=== PATIENT | male | born 1960 | race Caucasian/White ===

== ENCOUNTER 2021-09-08 01:54 | Inpatient (IN) ==
[2021-09-08] MEDS ORDERED: *HR* Promethazine 25 MG/ML VIAL IM PRN (03:19)
[2021-09-08] MEDS ORDERED: Naloxone 0.4 MG/ML INJ IVP PRN (03:19)
[2021-09-08] MEDS ORDERED: Ondansetron 4 MG/2 ML VIAL IVP PRN (03:19)
[2021-09-08] MEDS ORDERED: Melatonin 3 MG TABLET PO PRN (03:19)
[2021-09-08] MEDS ORDERED: Perflutren Lipid Microsphere 1.3 ML in 0.9 % Sodium Chloride 8.7 ML IVP PRN (03:25)
[2021-09-08 04:53] LABS: Basophils % 0.2 %; Eosinophils % 0.1 %; Immature Granulocytes % 0.9 % (0-4); Lymphocytes # 0.6 K/mcL (0.6-4.6); Lymphocytes % 4.8 %; Mean Corpuscular HGB Conc 34.1 g/dL (31.6-35.5); Mean Corpuscular Hemoglobin 31.1 pg (28.0-33.3); Mean Corpuscular Volume 91.3 fL (83.0-100.0); Mean Platelet Volume 10.3 fL (9.4-12.4); Monocytes # 0.2 K/mcL (0.0-1.3); Monocytes % 1.3 %; Neutrophils # 11.9 K/mcL (1.6-8.9); Platelet Count 262 K/mcL (140-400); Red Blood Count 4.82 M/mcL (4.19-5.50); Red Cell Distribution Width 15.1 % (11.5-14.5); Segmented Neutrophils % 92.7 %; White Blood Count 12.8 K/mcL (4.3-11.1)
[2021-09-08] MEDS ORDERED: *HR* Labetalol 20 MG/4 ML SYRINGE IVP ONE (04:58)
[2021-09-08 05:01] LABS: INR 1.1; Prothrombin Time 12.1 Seconds (9.4-12.1)
[2021-09-08 05:12] LABS: Chol/HDL Ratio 6.4 (0-4.9); Cholesterol 243 mg/dL (< 200); HDL Cholesterol 38 mg/dL (40-59); Triglycerides 868 mg/dL (< 150)
[2021-09-08 05:20] LABS: Alanine Aminotransferase 55 Units/L (7-52); Albumin 3.8 g/dL (3.5-5.7); Albumin/Globulin Ratio 1.2 (1.1-2.2); Alkaline Phosphatase 160 Units/L (34-104); Aspartate Amino Transferase 77 Units/L (13-39); BUN/Creatinine Ratio 21 (6-26); Bilirubin,Total 0.3 mg/dL (0.3-1.0); Blood Urea Nitrogen 24 mg/dL (8-23); Calcium 8.4 mg/dL (8.6-10.3); Carbon Dioxide 21 mEq/L (23-29); Chloride 101 mEq/L (98-107); Globulin 3.3 g/dL (2.4-3.5); Glucose 368 mg/dL (70-105); Magnesium 1.5 mg/dL (1.6-2.6); Osmolality,Calculated 297 (280-300); Potassium 4.6 mEq/L (3.5-5.1); Sodium 134 mEq/L (136-145); Total Protein 7.1 g/dL (6.4-8.9); Troponin I 15.13 ng/mL (< 0.04); eGFR For African Americans > 60 (> 60); eGFR For Non-African Americans > 60 (> 60)
[2021-09-08] MEDS ORDERED: Dextrose Gel 15 GM/37.5 ML TUBE PO PRN ×2 (05:36)
[2021-09-08] MEDS ORDERED: *HR* Dextrose 50 % in Water (Syg) 50 ML SYRINGE IVP PRN (05:36)
[2021-09-08] MEDS ORDERED: D5% in Water 1,000 ML IVC PRN (05:36)
[2021-09-08] MEDS ORDERED: *HR* Ticagrelor 90 MG TABLET PO ONE (05:41)
[2021-09-08] MEDS ORDERED: *HR* Heparin 5,000 UNIT/ML VIAL IVP PRN (05:45)
[2021-09-08] MEDS ORDERED: Furosemide 20 MG/2 ML VIAL IVP ONE ×2 (05:47→08:49)
[2021-09-08] MEDS ORDERED: Insulin LISPRO 300 UNITS/3 ML VIAL SUBQ SCH (06:00)
[2021-09-08] MEDS: Insulin LISPRO 300 UNITS/3 ML VIAL SUBQ SCH ×3 (06:26→16:37)
[2021-09-08] MEDS: Insulin DETEMIR 100 UNIT/ML X5UNITS SUBQ SCH ×2 (08:01→20:44)
[2021-09-08] MEDS: Heparin 25,000UNIT/250ML 1/2NS 25,000 UNIT/250 ML IV.SOLN IVC SCH (08:01)
[2021-09-08] MEDS: Aspirin Enteric Coated 81 MG Tablet PO SCH (10:23)
[2021-09-08 11:56] LABS: Estimated Average Glucose 200 mg/dl; Hemoglobin A1C 8.6 %
[2021-09-08] MEDS ORDERED: Heparin 1,000 UNITS/500 mL 500 ML ONE ×2 (12:12→12:47)
[2021-09-08] MEDS ORDERED: *HR* Midazolam HCl 2 MG/2 ML VIAL ONE (12:12)
[2021-09-08] MEDS ORDERED: *HR* FentaNYL (PF) 100 MCG/2 ML VIAL ONE (12:12)
[2021-09-08] MEDS ORDERED: *HR* Heparin 10,000 UNIT/10 ML VIAL ONE (12:12)
[2021-09-08] MEDS ORDERED: ISOVUE-370 200 ML INFUS..BTL ONE (12:12)
[2021-09-08] MEDS ORDERED: 0.9 % Sodium Chloride 1,000 ML ONE (12:12)
[2021-09-08] MEDS ORDERED: Nitroglycerin 1,000 MCG/5 ML VIAL IV ONE (12:13)
[2021-09-08] MEDS: Isosorbide MONOnitrate (24 HR) 60 MG TAB.ER.24H PO SCH (14:34)
[2021-09-08] MEDS: carvediloL 6.25 MG TABLET PO SCH (17:41)
[2021-09-09] MEDS: Insulin LISPRO 300 UNITS/3 ML VIAL SUBQ SCH ×5 (01:08→22:10)
[2021-09-09 03:05] LABS: Basophils # 0.1 K/mcL (0.0-0.2); Basophils % 0.4 %; Eosinophils % 0.2 %; Hematocrit 41.4 % (37.5-50.1); Immature Granulocytes % 0.5 % (0-4); Lymphocytes # 2.5 K/mcL (0.6-4.6); Lymphocytes % 18.9 %; Mean Corpuscular HGB Conc 32.4 g/dL (31.6-35.5); Mean Corpuscular Hemoglobin 27.7 pg (28.0-33.3); Mean Corpuscular Volume 85.7 fL (83.0-100.0); Mean Platelet Volume 10.4 fL (9.4-12.4); Monocytes # 0.9 K/mcL (0.0-1.3); Monocytes % 6.9 %; Neutrophils # 9.7 K/mcL (1.6-8.9); Platelet Count 241 K/mcL (140-400); Red Blood Count 4.83 M/mcL (4.19-5.50); Segmented Neutrophils % 73.1 %; White Blood Count 13.3 K/mcL (4.3-11.1)
[2021-09-09 03:12] LABS: Hemoglobin 13.4 g/dL (12.9-16.9)
[2021-09-09 03:17] LABS: BUN/Creatinine Ratio 25 (6-26); Blood Urea Nitrogen 26 mg/dL (8-23); Calcium 8.8 mg/dL (8.6-10.3); Carbon Dioxide 26 mEq/L (23-29); Chloride 102 mEq/L (98-107); Glucose 237 mg/dL (70-105); Osmolality,Calculated 294 (280-300); Potassium 3.6 mEq/L (3.5-5.1); Sodium 136 mEq/L (136-145); eGFR For African Americans > 60 (> 60); eGFR For Non-African Americans > 60 (> 60)
[2021-09-09] MEDS: *HR* Heparin 5,000 UNIT/ML VIAL IVP PRN ×3 (04:13→18:45)
[2021-09-09] MEDS: carvediloL 6.25 MG TABLET PO SCH ×2 (07:44→16:50)
[2021-09-09] MEDS: Isosorbide MONOnitrate (24 HR) 60 MG TAB.ER.24H PO SCH (07:44)
[2021-09-09] MEDS: Insulin DETEMIR 100 UNIT/ML X5UNITS SUBQ SCH ×2 (07:44→22:10)
[2021-09-09] MEDS: Aspirin Enteric Coated 81 MG Tablet PO SCH (07:44)
[2021-09-09] MEDS ORDERED: Perflutren Lipid Microsphere 1.3 ML in 0.9 % Sodium Chloride 8.7 ML IVP PRN (08:28)
[2021-09-09] MEDS: lisinopriL 5 MG TABLET PO SCH (10:29)
[2021-09-09] MEDS: Furosemide 40 MG/4 ML VIAL IVP SCH (10:30)
[2021-09-09] MEDS: Heparin 25,000UNIT/250ML 1/2NS 25,000 UNIT/250 ML IV.SOLN IVC SCH (17:31)
[2021-09-10 01:48] LABS: Basophils # 0.1 K/mcL (0.0-0.2); Basophils % 0.6 %; Eosinophils # 0.1 K/mcL (0.0-0.6); Eosinophils % 0.6 %; Hematocrit 41.7 % (37.5-50.1); Hemoglobin 13.9 g/dL (12.9-16.9); Immature Granulocytes % 0.5 % (0-4); Lymphocytes # 3.1 K/mcL (0.6-4.6); Lymphocytes % 29.5 %; Mean Corpuscular HGB Conc 33.3 g/dL (31.6-35.5); Mean Corpuscular Volume 89.9 fL (83.0-100.0); Monocytes # 0.8 K/mcL (0.0-1.3); Monocytes % 7.3 %; Neutrophils # 6.5 K/mcL (1.6-8.9); Platelet Count 225 K/mcL (140-400); Red Blood Count 4.64 M/mcL (4.19-5.50); Red Cell Distribution Width 14.6 % (11.5-14.5); Segmented Neutrophils % 61.5 %; White Blood Count 10.6 K/mcL (4.3-11.1)
[2021-09-10 02:06] LABS: BUN/Creatinine Ratio 26 (6-26); Blood Urea Nitrogen 26 mg/dL (8-23); Calcium 8.6 mg/dL (8.6-10.3); Carbon Dioxide 26 mEq/L (23-29); Chloride 100 mEq/L (98-107); Glucose 185 mg/dL (70-105); Osmolality,Calculated 290 (280-300); Potassium 3.8 mEq/L (3.5-5.1); Sodium 135 mEq/L (136-145); eGFR For African Americans > 60 (> 60); eGFR For Non-African Americans > 60 (> 60)
[2021-09-10] MEDS: lisinopriL 5 MG TABLET PO SCH (07:17)
[2021-09-10] MEDS: Aspirin Enteric Coated 81 MG Tablet PO SCH (07:18)
[2021-09-10] MEDS: Isosorbide MONOnitrate (24 HR) 60 MG TAB.ER.24H PO SCH (07:18)
[2021-09-10] MEDS: carvediloL 6.25 MG TABLET PO SCH ×2 (07:18→16:55)
[2021-09-10] MEDS: Furosemide 40 MG/4 ML VIAL IVP SCH (07:18)
[2021-09-10] MEDS ORDERED: carvediloL 6.25 MG TABLET PO ONE (07:22)
[2021-09-10] MEDS: Heparin 25,000UNIT/250ML 1/2NS 25,000 UNIT/250 ML IV.SOLN IVC SCH (08:17)
[2021-09-10] MEDS ORDERED: lisinopriL 5 MG TABLET PO SCH ×2 (09:00→12:00)
[2021-09-10] MEDS: Insulin DETEMIR 100 UNIT/ML X5UNITS SUBQ SCH ×2 (09:01→21:00)
[2021-09-10] MEDS: Insulin LISPRO 300 UNITS/3 ML VIAL SUBQ SCH ×7 (09:02→20:57)
[2021-09-10] MEDS: amLODIPine 5 MG TABLET PO SCH (16:55)
[2021-09-10] MEDS: *HR* Heparin 5,000 UNIT/ML VIAL SQ SCH (16:56)
[2021-09-11] MEDS: *HR* Heparin 5,000 UNIT/ML VIAL SQ SCH ×2 (05:08→16:28)
[2021-09-11 06:05] LABS: Basophils % 0.4 %; Eosinophils # 0.1 K/mcL (0.0-0.6); Eosinophils % 0.7 %; Hematocrit 41.1 % (37.5-50.1); Hemoglobin 13.6 g/dL (12.9-16.9); Immature Granulocytes % 0.5 % (0-4); Lymphocytes # 1.9 K/mcL (0.6-4.6); Lymphocytes % 20.7 %; Mean Corpuscular HGB Conc 33.1 g/dL (31.6-35.5); Mean Corpuscular Hemoglobin 28.5 pg (28.0-33.3); Mean Corpuscular Volume 86.2 fL (83.0-100.0); Mean Platelet Volume 10.2 fL (9.4-12.4); Monocytes # 0.7 K/mcL (0.0-1.3); Monocytes % 7.9 %; Neutrophils # 6.4 K/mcL (1.6-8.9); Platelet Count 218 K/mcL (140-400); Red Blood Count 4.77 M/mcL (4.19-5.50); Red Cell Distribution Width 13.7 % (11.5-14.5); Segmented Neutrophils % 69.8 %; White Blood Count 9.2 K/mcL (4.3-11.1)
[2021-09-11 06:25] LABS: BUN/Creatinine Ratio 34 (6-26); Blood Urea Nitrogen 37 mg/dL (8-23); Calcium 8.7 mg/dL (8.6-10.3); Carbon Dioxide 26 mEq/L (23-29); Chloride 103 mEq/L (98-107); Glucose 205 mg/dL (70-105); Osmolality,Calculated 295 (280-300); Potassium 3.8 mEq/L (3.5-5.1); Sodium 135 mEq/L (136-145); eGFR For African Americans > 60 (> 60); eGFR For Non-African Americans > 60 (> 60)
[2021-09-11] MEDS: Isosorbide MONOnitrate (24 HR) 60 MG TAB.ER.24H PO SCH (07:54)
[2021-09-11] MEDS: carvediloL 6.25 MG TABLET PO SCH ×2 (07:54→16:27)
[2021-09-11] MEDS: amLODIPine 5 MG TABLET PO SCH (07:54)
[2021-09-11] MEDS: Aspirin Enteric Coated 81 MG Tablet PO SCH (07:54)
[2021-09-11] MEDS: Insulin DETEMIR 100 UNIT/ML X5UNITS SUBQ SCH ×2 (07:55→21:29)
[2021-09-11] MEDS: Insulin LISPRO 300 UNITS/3 ML VIAL SUBQ SCH ×7 (07:57→21:29)
[2021-09-11] MEDS ORDERED: Furosemide 40 MG TABLET PO SCH (09:00)
[2021-09-11] MEDS ORDERED: amLODIPine 5 MG TABLET PO SCH (09:00)
[2021-09-11] MEDS ORDERED: lisinopriL 20 MG TABLET PO SCH ×2 (12:00)
[2021-09-11] MEDS ORDERED: lisinopriL 5 MG TABLET PO SCH ×2 (12:00)
[2021-09-11] MEDS ORDERED: Isosorbide MONOnitrate (24 HR) 60 MG TAB.ER.24H PO SCH (21:00)
[2021-09-12 03:46] LABS: BUN/Creatinine Ratio 34 (6-26); Blood Urea Nitrogen 44 mg/dL (8-23); Calcium 8.4 mg/dL (8.6-10.3); Carbon Dioxide 24 mEq/L (23-29); Chloride 100 mEq/L (98-107); Glucose 148 mg/dL (70-105); Osmolality,Calculated 294 (280-300); Potassium 3.8 mEq/L (3.5-5.1); Sodium 135 mEq/L (136-145); eGFR For African Americans > 60 (> 60); eGFR For Non-African Americans 55 (> 60)
[2021-09-12] MEDS: *HR* Heparin 5,000 UNIT/ML VIAL SQ SCH (05:16)
[2021-09-12] MEDS: Insulin DETEMIR 100 UNIT/ML X5UNITS SUBQ SCH (07:59)
[2021-09-12] MEDS: Aspirin Enteric Coated 81 MG Tablet PO SCH (08:00)
[2021-09-12] MEDS: carvediloL 6.25 MG TABLET PO SCH (08:00)
[2021-09-12] MEDS: Insulin LISPRO 300 UNITS/3 ML VIAL SUBQ SCH ×4 (08:01→12:41)
[2021-09-12 10:07] LABS: BUN/Creatinine Ratio 37 (6-26); Blood Urea Nitrogen 43 mg/dL (8-23); Calcium 8.5 mg/dL (8.6-10.3); Carbon Dioxide 25 mEq/L (23-29); Chloride 101 mEq/L (98-107); Glucose 251 mg/dL (70-105); Osmolality,Calculated 297 (280-300); Sodium 134 mEq/L (136-145); eGFR For African Americans > 60 (> 60); eGFR For Non-African Americans > 60 (> 60)
[2021-09-12] MEDS ORDERED: amLODIPine 5 MG TABLET PO SCH ×2 (10:30→12:00)
[2021-09-12 12:05] VITALS: BP 161/70; PULSE 78; TEMP 98.1; O2SAT 98
[2021-09-12] MEDS ORDERED: lisinopriL 20 MG TABLET PO SCH (21:00)
== END 2021-09-12 16:02 | disposition home or self-care (01) | DRG 281 ==
LOC: 2ANU → SUATTDRO 02:41
PROVIDERS: ADMIT Internal Medicine; ATTEND Internal Medicine

== ENCOUNTER 2021-09-19 06:06 | Inpatient (IN) ==
[2021-09-19] MEDS ORDERED: CeFAZolin Syr 2,000MG/20 ML 2,000 MG/20 ML SYRINGE IVPB ONE (06:26)
[2021-09-19] MEDS ORDERED: Ringers Solution, Lactated 1,000 ML IVC SCH (06:30)
[2021-09-19] MEDS ORDERED: NiCARdipine 2.5 MG/10 ML Syringe IVPB ONE (06:41)
[2021-09-19] MEDS ORDERED: *HR* FentaNYL (PF) 1,000 MCG/20 ML VIAL ONE (06:43)
[2021-09-19] MEDS ORDERED: *HR* Propofol 200 MG/20 ML VIAL IVP ONE (06:43)
[2021-09-19] MEDS ORDERED: *HR* Midazolam HCl 5 MG/5 ML VIAL IVP ONE (06:43)
[2021-09-19] MEDS ORDERED: Tranexamic Acid 1,000 MG/10 ML VIAL ONE ×2 (06:47→11:00)
[2021-09-19] MEDS ORDERED: Lidocaine 2% Syringe 100 MG/5 ML ONE ×2 (06:47→11:00)
[2021-09-19] MEDS ORDERED: Famotidine 20 MG/2 ML VIAL ONE (06:47)
[2021-09-19] MEDS ORDERED: *HR* Magnesium Sulfate 1 GM/2 ML VIAL ONE (06:47)
[2021-09-19] MEDS ORDERED: *HR* Rocuronium Bromide 50 MG/5 ML VIAL ONE ×3 (06:47→11:25)
[2021-09-19] MEDS ORDERED: Chlorhexidine Rinse 15 ML MOUTHWASH MM SCH ×4 (07:00→21:00)
[2021-09-19] MEDS ORDERED: Papaverine 60 MG/2 ML VIAL IVP ONE (07:12)
[2021-09-19] MEDS ORDERED: Vancomycin 1,000 MG VIAL ONE (07:13)
[2021-09-19] MEDS ORDERED: Norepinephrine 4 MG in 0.9 % Sodium Chloride 250 ML IVC PRN (07:45)
[2021-09-19] MEDS ORDERED: Buckersberg's Blood Cardioplegia PF SCH (07:45)
[2021-09-19] MEDS ORDERED: Heparin 15,000 UNIT in 0.9 % Sodium Chloride 500 ML IV ONE ×2 (07:45→13:22)
[2021-09-19] MEDS ORDERED: del Nido Cardioplegia Solution PF ONE (07:45)
[2021-09-19] MEDS ORDERED: del Nido Cardioplegia Solution PF SCH (07:45)
[2021-09-19 08:30] LABS: ABG Base Excess -2 mEq/L (-2 to 3); ABG Chloride 107 mEq/L (98-107); ABG Glucose 131 mg/dL (60-95); ABG HCO3 24 mEq/L (21-27); ABG Ionized Calcium 1.09 mmol/L (1.15-1.35); ABG Oxygen Saturation 100 % (95-98); ABG PCO2 48 mmHg (35-45); ABG PH 7.31 pH Units (7.32-7.45); ABG PO2 352 mmHg (85-104); ABG TCO2 26 mEq/L (20-26)
[2021-09-19 09:53] LABS: ABG Base Excess -3 mEq/L (-2 to 3); ABG Chloride 106 mEq/L (98-107); ABG Glucose 154 mg/dL (60-95); ABG HCO3 22 mEq/L (21-27); ABG Ionized Calcium 1.09 mmol/L (1.15-1.35); ABG Oxygen Saturation 99 % (95-98); ABG PCO2 37 mmHg (35-45); ABG PH 7.38 pH Units (7.32-7.45); ABG PO2 164 mmHg (85-104); ABG TCO2 23 mEq/L (20-26)
[2021-09-19 10:52] LABS: ABG Base Excess -1 mEq/L (-2 to 3); ABG Chloride 100 mEq/L (98-107); ABG Glucose 144 mg/dL (60-95); ABG HCO3 25 mEq/L (21-27); ABG Ionized Calcium 1.04 mmol/L (1.15-1.35); ABG Oxygen Saturation 100 % (95-98); ABG PCO2 47 mmHg (35-45); ABG PH 7.33 pH Units (7.32-7.45); ABG PO2 589 mmHg (85-104); ABG TCO2 26 mEq/L (20-26)
[2021-09-19] MEDS ORDERED: Mannitol 25% vial 12.5 GM/50 ML VIAL ONE (11:00)
[2021-09-19] MEDS ORDERED: *HR* Magnesium Sulfate 2 GM/50 ML PIGGYBACK IVPB ONE (11:00)
[2021-09-19] MEDS ORDERED: *HR* Heparin 10,000 UNIT/10 ML VIAL ONE (11:00)
[2021-09-19] MEDS ORDERED: Albumin Human 25% 25 GM/100 ML IV.SOLN ONE (11:00)
[2021-09-19] MEDS ORDERED: Sodium Bicarbonate 50 MEQ/50 ML VIAL ONE (11:00)
[2021-09-19] MEDS ORDERED: *HR* Phenylephrine 10 MG/ML VIAL ONE (11:00)
[2021-09-19] MEDS ORDERED: Heparin 1,000 UNITS/500 mL IV.SOLN ONE (11:00)
[2021-09-19 11:11] LABS: ABG Base Excess -1 mEq/L (-2 to 3); ABG Chloride 101 mEq/L (98-107); ABG Glucose 156 mg/dL (60-95); ABG HCO3 24 mEq/L (21-27); ABG Ionized Calcium 1.06 mmol/L (1.15-1.35); ABG Oxygen Saturation 100 % (95-98); ABG PCO2 42 mmHg (35-45); ABG PH 7.37 pH Units (7.32-7.45); ABG PO2 411 mmHg (85-104); ABG TCO2 25 mEq/L (20-26)
[2021-09-19] MEDS ORDERED: Protamine Sulfate 250 MG/25 ML VIAL IVP ONE (11:20)
[2021-09-19] MEDS ORDERED: Protamine Sulfate 50 MG/5 ML VIAL IVP ONE (11:20)
[2021-09-19] MEDS ORDERED: Calcium Gluconate 1,000 MG/10 ML VIAL ONE (11:21)
[2021-09-19 11:27] LABS: ABG Base Excess -1 mEq/L (-2 to 3); ABG Chloride 105 mEq/L (98-107); ABG Glucose 153 mg/dL (60-95); ABG HCO3 24 mEq/L (21-27); ABG Ionized Calcium 1.01 mmol/L (1.15-1.35); ABG Oxygen Saturation 100 % (95-98); ABG PCO2 44 mmHg (35-45); ABG PH 7.35 pH Units (7.32-7.45); ABG PO2 355 mmHg (85-104); ABG TCO2 26 mEq/L (20-26)
[2021-09-19 11:46] LABS: ABG Base Excess 1 mEq/L (-2 to 3); ABG Chloride 106 mEq/L (98-107); ABG Glucose 162 mg/dL (60-95); ABG HCO3 27 mEq/L (21-27); ABG Ionized Calcium 1.03 mmol/L (1.15-1.35); ABG Oxygen Saturation 100 % (95-98); ABG PCO2 47 mmHg (35-45); ABG PH 7.36 pH Units (7.32-7.45); ABG PO2 295 mmHg (85-104); ABG TCO2 28 mEq/L (20-26)
[2021-09-19] MEDS ORDERED: *HR* Dextrose 50 % in Water (Syg) 50 ML SYRINGE ONE (11:56)
[2021-09-19 12:05] LABS: ABG Base Excess -5 mEq/L (-2 to 3); ABG Chloride 107 mEq/L (98-107); ABG Glucose 288 mg/dL (60-95); ABG HCO3 21 mEq/L (21-27); ABG Ionized Calcium 1.03 mmol/L (1.15-1.35); ABG Oxygen Saturation 96 % (95-98); ABG PCO2 41 mmHg (35-45); ABG PH 7.31 pH Units (7.32-7.45); ABG PO2 87 mmHg (85-104); ABG TCO2 22 mEq/L (20-26)
[2021-09-19] MEDS ORDERED: Acetaminophen 325 MG TABLET PO PRN ×2 (13:07→13:22)
[2021-09-19] MEDS ORDERED: Albumin Human 5% 12.5 GM/250 ML IV.SOLN IVPB PRN (13:07)
[2021-09-19] MEDS ORDERED: Potassium Chloride 40 MEQ/200 ML BAG IVPB PRN ×2 (13:07→13:22)
[2021-09-19] MEDS ORDERED: Insulin Regular, Human 100 UNIT/ML IV PRN ×2 (13:07→13:22)
[2021-09-19] MEDS ORDERED: *HR* Dextrose 50 % in Water (Syg) 50 ML SYRINGE IVP PRN (13:07)
[2021-09-19] MEDS ORDERED: Calcium Gluconate 1gm/50mL 1 GM/50 ML BAG IVPB PRN ×2 (13:07→13:22)
[2021-09-19] MEDS ORDERED: *HR* Promethazine 25 MG/ML VIAL IM PRN ×2 (13:07→13:22)
[2021-09-19] MEDS ORDERED: *HR* OxyCODONE/APAP 5/325 TABLET PO PRN (13:07)
[2021-09-19] MEDS ORDERED: Ondansetron 4 MG/2 ML VIAL IVP PRN ×2 (13:07→13:22)
[2021-09-19] MEDS ORDERED: *HR* FentaNYL (PF) 100 MCG/2 ML VIAL IVP PRN (13:07)
[2021-09-19] MEDS ORDERED: Norepinephrine 4 MG/254 ML IV.SOLN IVC SCH (13:15)
[2021-09-19 13:21] LABS: ABG Base Excess -3 mEq/L (-2 to 3); ABG HCO3 23 mEq/L (21-27); ABG Oxygen Saturation 93 % (95-98); ABG PCO2 49 mmHg (35-45); ABG PH 7.29 pH Units (7.32-7.45); ABG PO2 73 mmHg (85-104); ABG TCO2 25 mEq/L (20-26); Blood Gas Modality ASSIST CONTROL; Blood Gas VT 600 cc
[2021-09-19] MEDS ORDERED: Sodium Bicarbonate 10 MEQ, Potassium Chloride 80 MEQ in CARDIOPLEGIC SOLUTION NO.1 1,00... PF SCH (13:22)
[2021-09-19 13:30] LABS: Basophils # 0.1 K/mcL (0.0-0.2); Basophils % 0.4 %; Eosinophils % 0.2 %; Hematocrit 34.1 % (37.5-50.1); Hemoglobin 11.2 g/dL (12.9-16.9); Immature Granulocytes % 0.6 % (0-4); Lymphocytes # 0.9 K/mcL (0.6-4.6); Lymphocytes % 5.3 %; Mean Corpuscular HGB Conc 32.8 g/dL (31.6-35.5); Mean Corpuscular Hemoglobin 28.3 pg (28.0-33.3); Mean Corpuscular Volume 86.1 fL (83.0-100.0); Mean Platelet Volume 10.6 fL (9.4-12.4); Monocytes # 0.7 K/mcL (0.0-1.3); Neutrophils # 15.4 K/mcL (1.6-8.9); Platelet Count 186 K/mcL (140-400); Red Blood Count 3.96 M/mcL (4.19-5.50); Red Cell Distribution Width 13.4 % (11.5-14.5); Segmented Neutrophils % 89.5 %; White Blood Count 17.3 K/mcL (4.3-11.1)
[2021-09-19 13:37] LABS: INR 1.4; Prothrombin Time 15.4 Seconds (9.4-12.1)
[2021-09-19 13:39] LABS: Activated Partial Thrombo Time 37.4 Seconds (26.0-36.0)
[2021-09-19 13:45] LABS: BUN/Creatinine Ratio 27 (6-26); Blood Urea Nitrogen 26 mg/dL (8-23); Calcium 7.8 mg/dL (8.6-10.3); Carbon Dioxide 25 mEq/L (23-29); Chloride 106 mEq/L (98-107); Glucose 240 mg/dL (70-105); Magnesium 2.8 mg/dL (1.6-2.6); Osmolality,Calculated 295 (280-300); Potassium 4.5 mEq/L (3.5-5.1); Sodium 136 mEq/L (136-145); eGFR For African Americans > 60 (> 60); eGFR For Non-African Americans > 60 (> 60)
[2021-09-19] MEDS ORDERED: niCARdipine 20 MG/200 ML MLS IVC ONE (14:22)
[2021-09-19] MEDS: niCARdipine 20 MG/200 ML MLS IVC SCH ×3 (14:28→19:18)
[2021-09-19] MEDS: *HR* FentaNYL (PF) 100 MCG/2 ML VIAL IVP PRN ×2 (14:28→19:18)
[2021-09-19] MEDS: CeFAZolin 2 GM/120 ML BAG IVPB SCH ×2 (15:33→23:02)
[2021-09-19] MEDS ORDERED: CeFAZolin 2 GM/120 ML BAG IVPB SCH (16:00)
[2021-09-19] MEDS: *HR* OxyCODONE/APAP 5/325 TABLET PO PRN ×2 (16:19→21:58)
[2021-09-19 17:28] LABS: ABG Base Excess -2 mEq/L (-2 to 3); ABG HCO3 23 mEq/L (21-27); ABG Oxygen Saturation 97 % (95-98); ABG PCO2 37 mmHg (35-45); ABG PO2 89 mmHg (85-104); ABG TCO2 24 mEq/L (20-26)
[2021-09-19] MEDS: Norepinephrine 4 MG/254 ML IV.SOLN IVC SCH ×2 (19:12→19:51)
[2021-09-19] MEDS: Chlorhexidine Rinse 15 ML MOUTHWASH MM SCH (19:56)
[2021-09-20] MEDS: *HR* FentaNYL (PF) 100 MCG/2 ML VIAL IVP PRN ×4 (00:04→11:41)
[2021-09-20] MEDS: *HR* OxyCODONE/APAP 5/325 TABLET PO PRN ×6 (01:58→22:23)
[2021-09-20] MEDS: niCARdipine 20 MG/200 ML MLS IVC SCH ×6 (03:11→23:06)
[2021-09-20 03:30] LABS: Basophils % 0.1 %; Hematocrit 33.2 % (37.5-50.1); Hemoglobin 10.9 g/dL (12.9-16.9); Immature Granulocytes % 0.6 % (0-4); Lymphocytes # 1.2 K/mcL (0.6-4.6); Lymphocytes % 5.5 %; Mean Corpuscular HGB Conc 32.8 g/dL (31.6-35.5); Mean Corpuscular Hemoglobin 27.9 pg (28.0-33.3); Mean Corpuscular Volume 85.1 fL (83.0-100.0); Monocytes # 1.7 K/mcL (0.0-1.3); Monocytes % 7.7 %; Neutrophils # 19.2 K/mcL (1.6-8.9); Platelet Count 235 K/mcL (140-400); Red Cell Distribution Width 13.8 % (11.5-14.5); Segmented Neutrophils % 86.1 %; White Blood Count 22.3 K/mcL (4.3-11.1)
[2021-09-20 03:39] LABS: INR 1.3; Prothrombin Time 14.3 Seconds (9.4-12.1)
[2021-09-20 03:41] LABS: Activated Partial Thrombo Time 31.3 Seconds (26.0-36.0)
[2021-09-20 03:50] LABS: BUN/Creatinine Ratio 23 (6-26); Blood Urea Nitrogen 31 mg/dL (8-23); Carbon Dioxide 20 mEq/L (23-29); Chloride 102 mEq/L (98-107); Glucose 145 mg/dL (70-105); Magnesium 2.4 mg/dL (1.6-2.6); Osmolality,Calculated 285 (280-300); Potassium 4.6 mEq/L (3.5-5.1); Sodium 133 mEq/L (136-145); eGFR For African Americans > 60 (> 60); eGFR For Non-African Americans 55 (> 60)
[2021-09-20] MEDS: Albumin Human 5% 12.5 GM/250 ML IV.SOLN IVPB PRN ×2 (05:54→06:17)
[2021-09-20] MEDS ORDERED: Aspirin 81 MG TAB.CHEW PO ONE ×2 (06:00)
[2021-09-20] MEDS: Chlorhexidine Rinse 15 ML MOUTHWASH MM SCH ×2 (07:59→19:25)
[2021-09-20] MEDS: Pantoprazole 40 MG VIAL IVP SCH (07:59)
[2021-09-20] MEDS ORDERED: Aspirin Enteric Coated 81 MG Tablet PO SCH (09:00)
[2021-09-20] MEDS ORDERED: Chlorhexidine Rinse 15 ML MOUTHWASH MM SCH (09:00)
[2021-09-20] MEDS ORDERED: Pantoprazole 40 MG VIAL IVP SCH (09:00)
[2021-09-20] MEDS ORDERED: D5% in Water 1,000 ML IVC PRN (11:12)
[2021-09-20] MEDS ORDERED: *HR* Dextrose 50 % in Water (Syg) 50 ML SYRINGE IVP PRN (11:12)
[2021-09-20] MEDS ORDERED: Dextrose Gel 15 GM/37.5 ML TUBE PO PRN ×2 (11:12)
[2021-09-20] MEDS ORDERED: Bumetanide 1 MG/4 ML VIAL IVP SCH (11:15)
[2021-09-20] MEDS: Insulin LISPRO 300 UNITS/3 ML VIAL SUBQ SCH ×2 (11:41→17:13)
[2021-09-20] MEDS: Norepinephrine 4 MG/254 ML IV.SOLN IVC SCH (19:12)
[2021-09-20] MEDS ORDERED: Insulin LISPRO 300 UNITS/3 ML VIAL SUBQ SCH (21:00)
[2021-09-21] MEDS: *HR* OxyCODONE/APAP 5/325 TABLET PO PRN ×5 (02:27→20:01)
[2021-09-21] MEDS: niCARdipine 20 MG/200 ML MLS IVC SCH ×3 (03:03→11:13)
[2021-09-21 04:12] LABS: Basophils % 0.2 %; Eosinophils # 0.1 K/mcL (0.0-0.6); Eosinophils % 0.3 %; Hematocrit 29.1 % (37.5-50.1); Hemoglobin 9.6 g/dL (12.9-16.9); Immature Granulocytes % 0.7 % (0-4); Lymphocytes # 1.2 K/mcL (0.6-4.6); Lymphocytes % 7.5 %; Mean Corpuscular Hemoglobin 28.9 pg (28.0-33.3); Mean Corpuscular Volume 87.7 fL (83.0-100.0); Mean Platelet Volume 11.1 fL (9.4-12.4); Monocytes # 1.6 K/mcL (0.0-1.3); Monocytes % 9.9 %; Neutrophils # 13.2 K/mcL (1.6-8.9); Platelet Count 164 K/mcL (140-400); Red Blood Count 3.32 M/mcL (4.19-5.50); Red Cell Distribution Width 14.1 % (11.5-14.5); Segmented Neutrophils % 81.4 %; White Blood Count 16.2 K/mcL (4.3-11.1)
[2021-09-21 04:15] LABS: VBG Ionized Calcium 1.05 mmol/L (1.15-1.35)
[2021-09-21 04:26] LABS: Calcium 8.1 mg/dL (8.6-10.3); Magnesium 2.2 mg/dL (1.6-2.6); Phosphorous 4.6 mg/dL (2.7-4.5); Potassium 4.6 mEq/L (3.5-5.1)
[2021-09-21] MEDS ORDERED: Calcium Gluconate 1gm/50mL 1 GM/50 ML BAG IVPB ONE (06:19)
[2021-09-21] MEDS: Insulin LISPRO 300 UNITS/3 ML VIAL SUBQ SCH ×3 (07:49→19:58)
[2021-09-21] MEDS: Pantoprazole 40 MG VIAL IVP SCH (08:59)
[2021-09-21] MEDS: Chlorhexidine Rinse 15 ML MOUTHWASH MM SCH (08:59)
[2021-09-21] MEDS ORDERED: Acetaminophen 325 MG TABLET PO PRN (13:25)
[2021-09-21] MEDS ORDERED: *HR* Promethazine 25 MG/ML VIAL IM PRN (13:25)
[2021-09-21] MEDS ORDERED: Albumin Human 5% 12.5 GM/250 ML IV.SOLN IVPB PRN (13:25)
[2021-09-21] MEDS ORDERED: Insulin Regular, Human 100 UNIT/ML IV PRN (13:25)
[2021-09-21] MEDS ORDERED: Ondansetron 4 MG/2 ML VIAL IVP PRN (13:25)
[2021-09-21] MEDS: 0.9 % Sodium Chloride 1,000 ML IVC SCH (14:02)
[2021-09-21] MEDS: Norepinephrine 4 MG/254 ML IV.SOLN IVC SCH (14:51)
[2021-09-21] MEDS: *HR* Heparin 5,000 UNIT/ML VIAL SQ SCH (17:07)
[2021-09-22] MEDS: *HR* OxyCODONE/APAP 5/325 TABLET PO PRN ×3 (02:33→20:33)
[2021-09-22] MEDS: 0.9 % Sodium Chloride 1,000 ML IVC SCH ×3 (02:34→16:51)
[2021-09-22 05:29] LABS: Calcium 8.2 mg/dL (8.6-10.3); Potassium 4.2 mEq/L (3.5-5.1)
[2021-09-22] MEDS: *HR* Heparin 5,000 UNIT/ML VIAL SQ SCH ×2 (06:01→18:57)
[2021-09-22] MEDS: Aspirin Enteric Coated 81 MG Tablet PO SCH (08:06)
[2021-09-22] MEDS ORDERED: Pantoprazole 40 MG VIAL IVP SCH (09:00)
[2021-09-22] MEDS: lisinopriL 20 MG TABLET PO SCH ×2 (10:16→20:29)
[2021-09-22] MEDS: Insulin DETEMIR 100 UNIT/ML X5UNITS SUBQ SCH ×2 (10:16→20:27)
[2021-09-22] MEDS: Insulin LISPRO 300 UNITS/3 ML VIAL SUBQ SCH ×3 (11:43→20:27)
[2021-09-22] MEDS: Isosorbide MONOnitrate (24 HR) 60 MG TAB.ER.24H PO SCH (20:27)
[2021-09-23] MEDS: 0.9 % Sodium Chloride 1,000 ML IVC SCH (02:52)
[2021-09-23 03:12] LABS: Basophils % 0.3 %; Calcium 7.9 mg/dL (8.6-10.3); Eosinophils # 0.1 K/mcL (0.0-0.6); Eosinophils % 0.6 %; Immature Granulocytes % 0.5 % (0-4); Lymphocytes # 1.4 K/mcL (0.6-4.6); Lymphocytes % 14.9 %; Mean Corpuscular HGB Conc 32.9 g/dL (31.6-35.5); Mean Corpuscular Hemoglobin 29.2 pg (28.0-33.3); Mean Corpuscular Volume 88.6 fL (83.0-100.0); Mean Platelet Volume 11.4 fL (9.4-12.4); Monocytes # 0.9 K/mcL (0.0-1.3); Monocytes % 9.6 %; Neutrophils # 6.9 K/mcL (1.6-8.9); Platelet Count 188 K/mcL (140-400); Potassium 4.5 mEq/L (3.5-5.1); Red Blood Count 2.71 M/mcL (4.19-5.50); Red Cell Distribution Width 14.2 % (11.5-14.5); Segmented Neutrophils % 74.1 %; White Blood Count 9.4 K/mcL (4.3-11.1)
[2021-09-23 03:47] LABS: Hemoglobin 7.9 g/dL (12.9-16.9)
[2021-09-23] MEDS: *HR* Heparin 5,000 UNIT/ML VIAL SQ SCH ×2 (05:23→17:53)
[2021-09-23] MEDS: Insulin LISPRO 300 UNITS/3 ML VIAL SUBQ SCH ×5 (07:56→21:30)
[2021-09-23] MEDS: lisinopriL 20 MG TABLET PO SCH ×2 (08:54→21:31)
[2021-09-23] MEDS: Aspirin Enteric Coated 81 MG Tablet PO SCH (08:54)
[2021-09-23] MEDS: Insulin DETEMIR 100 UNIT/ML X5UNITS SUBQ SCH ×2 (08:55→21:30)
[2021-09-23] MEDS: *HR* OxyCODONE/APAP 5/325 TABLET PO PRN ×3 (09:02→21:59)
[2021-09-23] MEDS: polyethylene glycoL 3350 17 GM POWD.PACK PO SCH (17:53)
[2021-09-23] MEDS ORDERED: 0.9 % Sodium Chloride 1,000 ML IVC SCH (19:15)
[2021-09-23] MEDS: Isosorbide MONOnitrate (24 HR) 60 MG TAB.ER.24H PO SCH (21:31)
[2021-09-23] MEDS: *HR* Metformin 500 MG TABLET PO SCH (21:31)
[2021-09-24 02:26] LABS: BUN/Creatinine Ratio 46 (6-26); Blood Urea Nitrogen 59 mg/dL (8-23); Carbon Dioxide 23 mEq/L (23-29); Chloride 105 mEq/L (98-107); Potassium 4.9 mEq/L (3.5-5.1); Sodium 135 mEq/L (136-145); eGFR For African Americans > 60 (> 60)
[2021-09-24 02:27] LABS: Calcium 8.2 mg/dL (8.6-10.3); Glucose 153 mg/dL (70-105); Osmolality,Calculated 300 (280-300); eGFR For Non-African Americans 57 (> 60)
[2021-09-24 02:36] LABS: Basophils % 0.4 %; Eosinophils # 0.2 K/mcL (0.0-0.6); Eosinophils % 1.9 %; Hematocrit 26.4 % (37.5-50.1); Hemoglobin 8.7 g/dL (12.9-16.9); Immature Granulocytes % 0.4 % (0-4); Lymphocytes % 17.4 %; Mean Corpuscular Hemoglobin 28.3 pg (28.0-33.3); Monocytes # 1.3 K/mcL (0.0-1.3); Monocytes % 11.7 %; Neutrophils # 7.7 K/mcL (1.6-8.9); Platelet Count 273 K/mcL (140-400); Red Blood Count 3.07 M/mcL (4.19-5.50); Red Cell Distribution Width 14.2 % (11.5-14.5); Segmented Neutrophils % 68.2 %; White Blood Count 11.3 K/mcL (4.3-11.1)
[2021-09-24] MEDS: *HR* Heparin 5,000 UNIT/ML VIAL SQ SCH ×2 (05:06→17:04)
[2021-09-24] MEDS: Insulin LISPRO 300 UNITS/3 ML VIAL SUBQ SCH ×4 (08:52→20:00)
[2021-09-24] MEDS: polyethylene glycoL 3350 17 GM POWD.PACK PO SCH (08:59)
[2021-09-24] MEDS: Aspirin Enteric Coated 81 MG Tablet PO SCH (08:59)
[2021-09-24] MEDS: *HR* Metformin 500 MG TABLET PO SCH ×2 (09:04→19:58)
[2021-09-24] MEDS: lisinopriL 20 MG TABLET PO SCH ×2 (09:04→19:58)
[2021-09-24] MEDS: Insulin DETEMIR 100 UNIT/ML X5UNITS SUBQ SCH ×2 (09:05→19:59)
[2021-09-24] MEDS: *HR* OxyCODONE/APAP 5/325 TABLET PO PRN ×2 (09:12→21:41)
[2021-09-24] MEDS ORDERED: Lactulose Oral Soln 20 GM/30 ML UDC PO ONE (14:53)
[2021-09-24] MEDS: Isosorbide MONOnitrate (24 HR) 60 MG TAB.ER.24H PO SCH (19:58)
[2021-09-25 05:20] LABS: Basophils % 0.3 %; Eosinophils # 0.2 K/mcL (0.0-0.6); Eosinophils % 1.9 %; Hematocrit 26.3 % (37.5-50.1); Hemoglobin 8.5 g/dL (12.9-16.9); Immature Granulocytes % 0.6 % (0-4); Lymphocytes # 1.7 K/mcL (0.6-4.6); Lymphocytes % 18.3 %; Mean Corpuscular HGB Conc 32.3 g/dL (31.6-35.5); Mean Corpuscular Hemoglobin 28.5 pg (28.0-33.3); Mean Corpuscular Volume 88.3 fL (83.0-100.0); Mean Platelet Volume 10.3 fL (9.4-12.4); Monocytes % 10.6 %; Neutrophils # 6.5 K/mcL (1.6-8.9); Platelet Count 305 K/mcL (140-400); Red Blood Count 2.98 M/mcL (4.19-5.50); Red Cell Distribution Width 14.4 % (11.5-14.5); Segmented Neutrophils % 68.3 %; White Blood Count 9.5 K/mcL (4.3-11.1)
[2021-09-25] MEDS: *HR* Heparin 5,000 UNIT/ML VIAL SQ SCH (05:21)
[2021-09-25 05:41] LABS: BUN/Creatinine Ratio 47 (6-26); Blood Urea Nitrogen 56 mg/dL (8-23); Calcium 8.5 mg/dL (8.6-10.3); Carbon Dioxide 24 mEq/L (23-29); Chloride 105 mEq/L (98-107); Glucose 125 mg/dL (70-105); Osmolality,Calculated 301 (280-300); Potassium 4.6 mEq/L (3.5-5.1); Sodium 137 mEq/L (136-145); eGFR For African Americans > 60 (> 60); eGFR For Non-African Americans > 60 (> 60)
[2021-09-25] MEDS: Insulin DETEMIR 100 UNIT/ML X5UNITS SUBQ SCH (08:09)
[2021-09-25] MEDS: Insulin LISPRO 300 UNITS/3 ML VIAL SUBQ SCH ×2 (08:09→11:54)
[2021-09-25] MEDS: lisinopriL 20 MG TABLET PO SCH (09:10)
[2021-09-25] MEDS: Aspirin Enteric Coated 81 MG Tablet PO SCH (09:10)
[2021-09-25] MEDS: polyethylene glycoL 3350 17 GM POWD.PACK PO SCH (09:11)
[2021-09-25] MEDS: *HR* Metformin 500 MG TABLET PO SCH (09:11)
[2021-09-25 11:07] VITALS: BP 142/50; PULSE 61; TEMP 98.6; O2SAT 100
[2021-09-25] MEDS: *HR* OxyCODONE/APAP 5/325 TABLET PO PRN (12:00)
== END 2021-09-25 14:40 | disposition home or self-care (01) | DRG 235 ==
LOC: SAMDAY 06:06 → SUATTDRO 13:06 → ICNU 13:06 → 2NNU 09-21 13:27
PROVIDERS: ADMIT Thoracic Surgery (Cardiothoracic Vascular Surgery); ATTEND Hospitalist